=== PATIENT | male | born 1945 | race Caucasian/White ===

== ENCOUNTER 2017-02-09 08:56 | Day surgery (SDC) | payer MEDICARE, OTHER ==
[~2017-02-09] VITALS: Ht 188 cm; Wt 131.5 kg
[~2017-02-09 08:56] MED LIST: ASPI81TA16 PO; ATOR20TA35 PO; BENA20TA72 PO; FISH1CAP15 PO; GLUC100016 PO; INSU100I18 SUBQ; INSU100V4 SQ; METF1000 PO; METO50TA PO; MULT-885 PO; Sodium Chloride LOK Flush 10 mL Syringe IV PRN; TADA20TA PO; fentaNYL-PF 50 mCg/mL 2 mL Inj IVPUSH PRN
[2017-02-09] MEDS ORDERED: GLIP10TA10 PO (09:52)
[2017-02-09 10:00] VITALS: BP 128/80; PULSE 69; RESP 14; O2SAT 95
[2017-02-09] MEDS: 0.9% Sodium Chloride 1,000 ML IV SCH ×2 (10:22→11:40)
[2017-02-09 12:12] VITALS: BP 122/77; PULSE 66; RESP 14; O2SAT 96
[2017-02-09 12:24] VITALS: BP 122/71; PULSE 75; RESP 14; O2SAT 95
[2017-02-09 12:32] VITALS: BP 125/70; PULSE 65; RESP 14; O2SAT 99
--- NOTE | 2017-02-09 14:41 | ENDO ---
[address] [address] ENDOSCOPY PROCEDURE PATIENT: MARCELLE PERRY : 1945 MR#: [id number] ADMIT: 02/09/2017 JOB ID: [id number] PRIMARY PROVIDER: LALIT Oseguera PROCEDURE: Colonoscopy with hot snare polypectomy, cold snare polypectomy, Sara ink tattoo placement, and APC ablation. INDICATIONS: A 71-year-old male with a personal history of colon polyps returning for surveillance. EQUIPMENT: [employer]. SEDATION: Versed 6 mg and 100 mcg fentanyl. COMPLICATIONS: None identified. BOWEL PREPARATION: Fair, adequate exam. PROCEDURE INFORMATION: After the risks and benefits were explained, written and verbal informed consent was obtained. The patient was brought into the endoscopy suite and placed into the left lateral decubitus position. Sedation was achieved as above and a digital rectal examination accomplished. No significant pathology appreciated, apart from some mild internal hemorrhoids. The scope was introduced into the rectum and advanced under direct visualization to the cecum as identified by the appendiceal orifice and ileocecal valve. The scope was slowly withdrawn to carefully examine the mucosa for any defects or lesions. Multiple direct views were made through the dentate line for exclusion of pathology. The colon was decompressed and the scope removed the patient, who tolerated the procedure well. FINDINGS: There were four small and medium-sized polyps removed with snare, two by way of hot snare and two by way of cold snare. These came from throughout the colon. There was a larger sessile polyp spread out over a couple of folds, quite subtle in appearance, but perhaps somewhere in the neighborhood of about 2 x 2 cm. Based on its presence on a fold, on a corner it was quite challenging to excise. We utilized three different snares; a standard polypectomy snare, a 20 mm stiff snare, and a Jumbo snare. With all of our efforts there was still some residual polyp that could not be gathered up in the snare successfully. We ablated what appeared to be any residual adenomatous mucosa with APC using right colon settings. An approximately 1 mL Sara ink tattoo was placed immediately adjacent the polypectomy site and we took multiple photographs. This polyp was in the transverse colon at approximately 95 cm from the anal verge. This was an extremely challenging procedure based on the difficulty of the polyp at 95 cm. Scope time was 65 minutes. A 22 modifier was therefore requested for this procedure. FINDINGS: 1. Colon polyp. 2. Challenging large sessile transverse polyp. 3. Hemorrhoids. RECOMMENDATIONS: 1. Await histopathology. 2. Repeat surveillance colonoscopy in approximately six months' time.
--- NOTE | 2017-02-10 15:09 | PATH ---
SURGICAL PATHOLOGY Attending Physician:Austyn Long CASE STATUS: Signed Out PATIENT NAME: MARCELLE PERRY JR PID: [id number] : 1945 DATE COLLECTED:02/09/2017 20:11 SPECIMEN: 1: Colon, Biopsy 2: Colon, Biopsy CLINICAL HISTORY: 1). COLON POLYPS 2). TRANSVERSE POLYP FINAL DIAGNOSIS: 1.COLON, POLYPS, BIOPSIES: MULTIPLE FRAGMENTS OF TUBULAR ADENOMA. 2.TRANSVERSE COLON, POLYP, BIOPSY: TUBULAR ADENOMA. ICD10 CODE D12.3 D12.6 GROSS DESCRIPTION: The specimen is received in two formalin filled containers labeled with the patient's name. 1). The specimen is sublabeled "colon polyps" and consists of 3 portions of tissue which aggregate to 0.4 x 0.4 x 0.3 CM. The specimen is entirely submitted in cassette 1A. 2). The specimen is sublabeled "transverse polyp" and consists of multiple portions of tissue which aggregate to 1.2 x 1.2 x 0.4 CM. The specimen is entirely submitted in cassette 2A. 02/09/2017 [facility] MICRO DESCRIPTION: See diagnosis. ICD-9 CODES: CPT CODES: 1: 42570 2: 71472 Electronically Signed Out Alesha Ardon MD [facility] Pathology [facility] [address], [place] [address] Technical component performed at [facility], [facility] [address], [place], [address]
== END 2017-02-09 23:59 | disposition home or self-care (01) ==
LOC: END 08:56
PROVIDERS: ATTEND Internal Medicine Gastroenterology
DX: Z12.11 Encounter for screening for malignant neoplasm of colon (principal); Z86.010 Personal history of colon polyps; D12.3 Benign neoplasm of transverse colon; D12.6 Benign neoplasm of colon, unspecified; K64.9 Unspecified hemorrhoids; I10 Essential (primary) hypertension; I25.10 Atherosclerotic heart disease of native coronary artery without angina pectoris; E11.9 Type 2 diabetes mellitus without complications; I73.9 Peripheral vascular disease, unspecified; E78.5 Hyperlipidemia, unspecified; Z79.84 Long term (current) use of oral hypoglycemic drugs
CPT/HCPCS: 45381; 45385; 88305; 99153; G0500; J7030

== ENCOUNTER → 2017-06-15 | Day surgery (SDC) | payer MEDICARE, OTHER ==
[~2017-06-15] VITALS: Ht 182.9 cm; Wt 111.1 kg
[~2017-06-15] MED LIST changes: +0.9% Sodium Chloride 1,000 ML IV SCH; +ASPI-973 PO; -ASPI81TA16 PO; -ATOR20TA35 PO; +BENA20TA PO; -BENA20TA72 PO; -FISH1CAP15 PO; +FLUT15.88 NS; +GLIP10TA10 PO; -INSU100V4 SQ; +LIP40 PO; +METF-496 PO; -METF1000 PO; +METO25TA6 PO; -METO50TA PO; +SERT20OR6 PO
[2017-06-15 13:02] VITALS: BP 121/66; PULSE 63; RESP 14; O2SAT 97
[2017-06-15 14:57] VITALS: BP 137/70; PULSE 66; RESP 14; O2SAT 99
[2017-06-15 15:12] VITALS: BP 137/70; PULSE 60; RESP 14; O2SAT 99
--- NOTE | 2017-06-15 16:09 | ENDO ---
[address] [address] ENDOSCOPY PROCEDURE PATIENT: MARCELLE PERRY : 1945 MR#: [id number] ADMIT: 06/15/2017 JOB ID: [id number] PRIMARY PROVIDER: LALIT Crenshaw PROCEDURE: Colonoscopy with hot snare polypectomy, hot forceps polypectomy, cold forceps polypectomy, cold snare polypectomy. INDICATION: A 72-year-old male with a personal history of colon polyps. At last exam he had a difficult to resect polyp judged to be about 95 cm from the anal verge. He returns for early surveillance. EQUIPMENT: PCF H 180 AL. SEDATION: Versed and fentanyl titrated to effect. BOWEL PREPARATION: Fair. PROCEDURE INFORMATION: After the risks and benefits were explained, written and verbal informed consent was obtained. The patient was brought into the endoscopy suite and placed into the left lateral decubitus position. Sedation was achieved as above. Digital rectal examination was accomplished. Mild internal hemorrhoids noted. No other significant pathology was appreciated. The scope was introduced into the rectum and advanced under direct visualization to the level of the cecum, as identified by the appendiceal orifice and ileocecal valve. The scope was slowly withdrawn to carefully examine the mucosa for any defects or lesions. Retroflexed views were avoided in the rectum. Multiple direct views were made through the dentate line for exclusion of pathology. The colon was decompressed and the scope removed from the patient, who tolerated the procedure well. FINDINGS: Associated with the ileocecal valve there was an obvious polyp that would have clearly been covered by stool debris six months ago. This was sessile and attached to the ileocecal valve, spreading into the cecum and ascending colon. This was removed by way of a combination of a Jumbo hot snare, a regular hot snare, and hot forceps polypectomy. There was a diminutive 3-4 mm polyp in the ascending colon wall adjacent to this location that was removed with a cold snare. The previously placed tattoo was easily seen in the transverse colon. Associated with this tattoo was obvious residual polyp, perhaps somewhere in the neighborhood of about 12-13 mm in greatest dimension. This was removed by way of a combination of Jumbo polypectomy snare. There was a tiny remnant of adenoma that seemed to remain following this resection and it was successfully removed with cold forceps. We touched up a small amount of bleeding that ensued after the cold polypectomy with the hot forceps. There were several other very diminutive polyps that were left in situ today. Procedure time was already prolonged secondary to the difficulty at both polyp sites. ENDOSCOPIC DIAGNOSES: Multiple colon polyps. RECOMMENDATIONS: 1. Await histopathology. 2. Repeat colonoscopy in approximately six months' time to reevaluate both large polypectomy locations and to resect any residual smaller polyps left in behind here today. I would recommend a 1 hour slot for the procedure.
--- NOTE | 2017-06-17 17:46 | PATH ---
SURGICAL PATHOLOGY Attending Physician:Austyn Long CASE STATUS: Signed Out PATIENT NAME: MARCELLE PERRY JR PID: [id number] : 1945 DATE COLLECTED:06/15/2017 00:00 SPECIMEN: 1: Colon, Polyp 2: Colon, Polyp CLINICAL HISTORY: PHX OF POLYPS 1). ILEOCECAL VALVE POLYPS X2 2). TRANSVERSE COLON POLYPS FINAL DIAGNOSIS: 1. 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 Negative for high-grade dysplasia and malignancy. 2. 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 Negative for high-grade dysplasia and malignancy. ICD10: D12.6 NOTE: As part of routine water quality tester, the case was also reviewed by Dr. Ardon, who agrees with the above interpretation. GROSS DESCRIPTION: The specimen is received in two formalin filled containers labeled with the patient's name. 1). The specimen is labeled "ICV polyps" and consists of multiple portions of tissue which aggregate to 0.7 x 0.7 x 0.4 CM. The specimen is entirely submitted in cassette 1A. 2). The specimen is labeled "transverse colon polyp" and consists of 3 portions of tissue which aggregate to 0.6 x 0.5 x 0.4 CM. The largest piece is bisected, all fragments are entirely submitted in cassette 2A. 06/16/2017DC ICD-9 CODES: CPT CODES: 1: 20235 2: 88053 Electronically Signed Out Schuyler Rivera MD [facility] Pathology [facility] [address], [place] [address] Technical component performed at [facility], [facility] [address], [place], [address]
== END | disposition home or self-care (01) ==
LOC: END 00:51
PROVIDERS: ATTEND Internal Medicine Gastroenterology
DX: Z12.11 Encounter for screening for malignant neoplasm of colon (principal); D12.0 Benign neoplasm of cecum; D12.3 Benign neoplasm of transverse colon; K64.8 Other hemorrhoids; E11.9 Type 2 diabetes mellitus without complications; F32.9 Major depressive disorder, single episode, unspecified; I25.10 Atherosclerotic heart disease of native coronary artery without angina pectoris; I73.9 Peripheral vascular disease, unspecified; I10 Essential (primary) hypertension; E78.5 Hyperlipidemia, unspecified; Z79.82 Long term (current) use of aspirin; Z79.84 Long term (current) use of oral hypoglycemic drugs; Z79.4 Long term (current) use of insulin
CPT/HCPCS: 45385; 88305; 99153; G0500; J2250; J3010; J7030

== ENCOUNTER 2017-06-20 01:52 | Inpatient (IN) | payer MEDICARE, OTHER ==
[~2017-06-20] VITALS: Ht 182.9 cm; Wt 112.7 kg
[2017-06-20] VITALS (21 sets, daily range): BP systolic 82–136; BP diastolic 49–79; PULSE 74–101; RESP 16–20; O2SAT 96–100
[~2017-06-20 01:52] MED LIST changes: -0.9% Sodium Chloride 1,000 ML IV SCH; -GLUC100016 PO; -Sodium Chloride LOK Flush 10 mL Syringe IV PRN; -fentaNYL-PF 50 mCg/mL 2 mL Inj IVPUSH PRN
[2017-06-20] MEDS ORDERED: 0.9% Sodium Chloride 1,000 ML IV ONE (01:58)
--- NOTE | 2017-06-20 01:58 | ED.REPORT ---
HPI-GI Bleed Date of Service Jun 20, 2017 ED Provider: Dr. Millard 72 y/o male with a hx of DM, CAD, and Tubular adenoma with a colonoscopy last week presents to the ED via EMS complaining of bloody diarrhea, onset 4 hours ago. Associated sx include lightheadedness, malaise and diaphoresis. The pt had been experiencing diarrhea without blood since yesterday morning. He took three 325mg Aspirin today for malaise, after which he had bloody diarrhea with clots. He denies nausea, vomiting and abdominal pain. He also has orthostatic hypotension with his BP in 70s. His BP in the ED is normal while in supine position. Nursing Notes Stated Complaint: RECTAL BLEEDING Nursing Notes Reviewed: Yes Allergies: Coded Allergies: No Known Allergies (Verified Allergy, Unknown, 01/21/17) Scheduled Aspirin (Aspirin) 81 Mg Tablet 81 MG PO DAILY Atorvastatin (Lipitor) 40 Mg Tablet 40 MG PO DAILY Glipizide (Glipizide) 10 Mg Tablet 10 MG PO BID Insulin Lispro (HumaLOG U100 Insulin Pen) 100 Unit/1 Ml Insuln.pen 1 UNIT SUBQ TID Blood Sugar Lispro Correction <151 0 units 151-175 1 unit 176-200 2 units 201-225 3 units 226-250 4 units 251-275 5 units 276-300 6 units 301-325 7 units 326-350 8 units 351-375 9 units 376-400 10 units >400 12 units Check blood sugars before meals and at bedtime. Use correction factor only before meals. Metformin ER (Metformin ER) 1,000 Mg Tablet 1,000 MG PO DAILY Metoprolol Tartrate (Metoprolol Tartrate) 25 Mg Tablet 25 MG PO BID Mu-Vits-Min Th/Lycopene/Lutein (Centrum Silver Tablet) 1 Each Tablet 1 EACH PO DAILY Sertraline HCl (Sertraline) 20 Mg/1 Ml Oral.conc 25 MG PO DAILY Tadalafil (Cialis) 20 Mg Tablet 20 MG PO PRN Scheduled PRN Tadalafil (Cialis) 20 Mg Tablet 20 MG PO PRN PRN PRN na As directed by physician. Miscellaneous Medications Benazepril (Benazepril) 20 Mg Tablet 20 MG PO Fluticasone Propionate (Fluticasone Propionate) 50 Mcg/Actuation [place].susp 15.8 ML NS General Time Seen by Provider: 02:11 Chief Complaint Chief Complaint: Stool bright red blood Hx Obtained From: Patient Arrived By: Ambulance Onset Occurred: 1 - 4 hours ago Symptom Duration: Since onset Severity: Current: No pain currently Severity: Maximum: No pain Recent Healthcare: No recent doctor visit Similar Sx Previous: No Past Medical History Past Medical History Reports: Diabetes mellitus Past Surgical History Reports: Cholecystectomy Smoking History Never Smoker Ambulatory Status Independent Review of Systems Reports: orthostatic hypotension Constitutional: Reports: Malaise GI: Reports: Diarrhea, Hematochezia, Denies: Abdominal pain, Nausea, Vomiting Skin: Reports Diaphoresis Complete sys rev & neg: except as marked. Physical Exam Initial Vital Signs Vital Signs (First) Date Time Temp Pulse Resp B/P Pulse Ox O2 Delivery O2 Flow Rate FiO2 06/20/17 02:05 36.8 74 18 130/65 99 Room Air Initial VS: Reviewed Head / Eyes: Atraumatic, Normocephalic Neck: Supple, Non-tender, Full range of motion Extremities: Vascular intact, Neuro intact, No swelling, No tenderness Skin: Warm, Dry, No cyanosis Neurologic: Alert, Oriented, Nonfocal General/Constitutional: Awake, Alert, Cooperative Appearance / Presentation: Positive: Obese Respiratory / Chest: Atraumatic, Breath sounds NL, Breath sounds = bilat, No respiratory distress, No rales, No rhonchi, No wheezing Cardiovascular: Heart rate NL, Regular rhythm, Heart sounds NL, No gallop, No murmurs, No rubs Abdomen: Atraumatic, Soft, Non-tender, No guarding, No rebound, BS normoactive Interpretation & Diagnostics Lab Results Interpretation Result Diagram: 06/20/17 0328 06/20/17 0228 Test 06/20/17 02:28 06/20/17 03:28 06/20/17 04:40 White Blood Count 14.4th/mm3 (3.8-10.1) Red Blood Count 3.34mil/mm3 (4.40-5.80) Mean Corpuscular Volume 95.2fL (81-100) Mean Corpuscular Hemoglobin 30.8pg (27.0-35.0) Mean Corpuscular Hemoglobin Concent 32.4% (32.0-37.0) Red Cell Distribution Width 14.2% (12.3-15.4) Platelet Count 282bil/L (150-400) Neutrophils (%) (Auto) 75.4% (40-74) Lymphocytes (%) (Auto) 15.8% (14-46) Monocytes (%) (Auto) 5.7% (4-12) Eosinophils (%) (Auto) 2.2% (0-5) Basophils (%) (Auto) 0.4% (0-3) Prothrombin Time 11.5sec (8.1-12.5) Prothromb Time International Ratio 1.07ratio Sodium Level 142mEq/L (134-144) Potassium Level 4.4mEq/L (3.5-5.2) Chloride Level 107mEq/L (97-108) Carbon Dioxide Level 19mmol/L (18-29) Blood Urea Nitrogen 29mg/dL (8-27) Creatinine 0.94mg/dL (0.76-1.27) Estimat Glomerular Filtration Rate 84mL/min (>59) Glucose Level 181mg/dL (60-99) Calcium Level 8.3mg/dL (8.5-10.1) Magnesium Level 1.7mg/dL (1.6-2.6) Total Bilirubin 0.3mg/dL (0.0-1.2) Aspartate Amino Transf (AST/SGOT) 18U/L (0-50) Alanine Aminotransferase (ALT/SGPT) 22U/L (0-44) Alkaline Phosphatase 100U/L (25-160) Troponin T 0.010ug/L (0.0-0.011) Total Protein 5.7g/dL (6.4-8.4) Albumin 3.3g/dL (3.4-5.0) Hold Callahan Top Tube Received (Received) Urine Color Straw (YELLOW) Urine Appearance Hazy (CLEAR,HAZY) Urine pH 5.0 (5.0-8.0) Urine Specific [place] 1.021 (1.003-1.035) Urine Protein Negativemg/dL (NEG,TRACE) Urine Glucose (UA) Negativemg/dL (NEGATIVE) Urine Ketones 15mg/dL (NEGATIVE) Urine Occult Blood Negative (NEGATIVE) Urine Nitrite Negative (NEGATIVE) Urine Bilirubin Negative (NEGATIVE) Urine Urobilinogen Normalmg/dL (NORMAL) Urine Leukocyte Esterase Negative (NEGATIVE) Urine RBC 0-2/hpf (0-2) Urine WBC 0-5/hpf (0-5) Urine Epithelial Cells Occasional/hpf (NONE-MOD) Urine Crystals None seen (NONE SEEN) Urine Bacteria Few/hpf (NONE-FEW) Urine Hyaline Casts Occasional/lpf (NONE) Urine Granular Casts None seen (NONE SEEN) Urine Waxy Casts None seen (NONE SEEN) Urine Red Blood Cell Casts None seen (NONE SEEN) Urine White Blood Cell Casts None seen (NONE SEEN) Urine Mucus None seen (None Seen) Urine Trichomonas None seen (NONE SEEN) Urine Yeast None (NONE SEEN) Urinalysis Comment None Urine Culture Reflexed Not indicated ECG Interpretation ECG Interpretation: Normal sinus rhythm. Rate 73. Incomplete left bundle branch block. Time: 02:09 Interpreted by: ED physician X-Ray Chest Interpretation Chest Xray Interpretation: Normal View: Portable, 1 view Interpretation / Wet Read by: Wet read ED physician Re-Eval/Medical Decision Med Decision/Clinical Course 72-year-old presents with significant lower GI bleeding bright red blood and clot at after colonoscopy with biopsy of a large and significant polyp. He did take aspirin, but I suspect his bleeding had already begun before he did that. He is admitted now for cleanout and potential colonoscopy and cauterization this morning. Original ram press operator Dr. Prescott will be on this morning. He is orthostatic and quite dizzy with upright posture and is obviously kept Supine. He is been fluid resuscitated and experienced a 1 g drop in his hemoglobin from 10.3-9.4 after his first liter of fluid. I expect he will require transfusion at this morning and blood is available. Transported now to the PCU with two IVs in place. Blood crossmatched in the lab. Begin Colyte cleanout Source of Hx: Old records Re-Evaluation/Progress : Time of Eval: 04:55 Re-Evaluation/Progress Note: Rechecked pt. Discussed lab results, imaging results,diagnosis and plan to admit. Pt understands and agrees with the plan for admission. All questions addressed. Consultation : Referral / Consult Name: Miguel Paul MD Consulted With: Hospitalist Call Returned at: 04:26 Fence Post Driver: Will see patient, Agrees with eval, Agrees with plan, Accepts admit Counseled Regarding: Diagnosis, Lab results, Need for admission Discharge & Departure Impression: Primary Impression: Lower gastrointestinal bleed Additional Impressions: Anemia Anemia type: unspecified type Qualified Code: D64.9 - Anemia, unspecified Acute blood loss anemia Hypotension due to blood loss Disposition: ADMITTED TO HOSPITAL Discharge Condition All VS Reviewed: Yes Condition: Improved Referrals: Marija Graves (PCP) Crit Care Except Billable Proc Time Spent: 30-74 minutes (thirty minutes) Services Performed: Patient management by me, Time spent at bedside, Reviewing test results, Reviewing imaging, Discussing patient care, Documentation in record, Other (arranging admission) Scribe Attestation Portions of this note were transcribed by Gerardo Espinoza. I,, personally performed the history, physical exam and medical decision-making;I reviewed and confirmed the accuracy of the information in the transcribed note. Signed by Zaina Morrison. 06/20/17 copies to: Marija Graves Christopher W MD Jun 20, 2017 01:58 Gerardo Espinoza Jun 20, 2017 02:34
[2017-06-20 02:35] LABS: BASOPHILS % (AUTO) 0.4 % (0-3); EOSINOPHILS % (AUTO) 2.2 % (0-5); MONOCYTES % (AUTO) 5.7 % (4-12); Mean Corpuscular Hemoglobin 30.8 pg (27.0-35.0); Mean Corpuscular Volume 95.2 fL (81-100); NEUTROPHILS % (AUTO) 75.4 % (40-74); Platelet Count 282 bil/L (150-400)
[2017-06-20 02:48] LABS: INR 1.07 ratio
[2017-06-20 03:08] LABS: TROPONIN T 0.01 ug/L (0.0-0.011)
[2017-06-20 03:14] LABS: Magnesium 1.7 mg/dL (1.6-2.6)
[2017-06-20] MEDS ORDERED: Polyethylene Glycol (PEG) 17 Gm Powder PO PRN (04:30)
[2017-06-20] MEDS ORDERED: Alum-Mag Hydrox-Simeth 30 mL Suspension PO PRN (04:30)
[2017-06-20] MEDS ORDERED: Ondansetron 2 mg/mL 2 mL Inj IVPUSH PRN (04:30)
[2017-06-20] MEDS ORDERED: Glucose 40% Oral Gel 15 Gm Tube PO PRN (04:45)
[2017-06-20 04:55] LABS: COLOR,URINE STRAW (YELLOW)
[2017-06-20 04:56] LABS: APPEARANCE,URINE HAZY (CLEAR,HAZY); OCCULT BLOOD,URINE NEGATIVE (NEGATIVE); UROBILINOGEN,URINE NORMAL (NORMAL)
--- NOTE | 2017-06-20 05:07 | PCM.HPMED ---
Subjective Date of Service Jun 20, 2017 Primary Provider: Admitting Physician: Primary Care Physician: Marija Graves Attending Physician: Admit Status: From the Emergency Department, Full Admit, [facility] Telemetry Chief Complaint: Rectal bleeding History of Present Illness: Claude Dougherty is a 72 yo Gentleman with Diabetes, Coronary artery disease, Peripheral artery disease and Tubular adenoma with recent colonoscopy presents to [facility] Emergency department via EMS complaining of bloody diarrhea, onset 4 hours ago. Patient recently had a Colonoscopy on 06/07/17. He did well after the procedure. Yesterday patient developed diarrhea without any blood but then he noted some increased bloody stools with clots late last night. Associated symptoms include lightheadedness, malaise and diaphoresis. He reported taking 3 x 325 mg of Aspirin apparently because he developed malaise prior to the bleeding. He denies nausea, vomiting and abdominal pain. Case discussed with Dr Millard. patient noted to have orthostatic hypotension with his BP in 70s. He was still dizzy when trying to get up. Fluids initiated. Dr Prescott notified by Dr Millard Review of Systems: Pertinent positives as noted in HPI. All other systems were reviewed and are negative Allergies Coded Allergies: No Known Allergies (Verified Allergy, Unknown, 01/21/17) Home Medications From [facility], not yet confirmed Claude Dougherty [id number] 1945 05/27/2017 11:00 AM 11/24 aspirin 81 mg Tab take 1 tablet (81MG) by ORAL route every day atorvastatin 40 mg tablet TAKE 1 TABLET DAILY for high cholesterol. benazepril 20 mg tablet TAKE 1 TABLET DAILY Centrum Silver Tab take 1 tablet by ORAL route every day CIALIS TABS 20MG TAKE 1 TABLET DAILY NEEDED FLUTICASONE VA NS SP 16GM RX 50MCG USE 1 SPRAY IN EACH NOSTRIL DAILY glipizide 5 mg tablet TAKE 2 TABLETS once DAILY WITH MEAL Humalog KwikPen 100 unit/mL subcutaneous inject by subcutaneous route per prescriber's instructions. Insulin dosing requires individualization. Levemir 100 unit/mL subcutaneous solution INJECT BY SUBCUTANEOUS ROUTE 40 UNITS AT BEDTIME METFORMIN HCL TABS 1000MG TAKE 1 TABLET TWICE A DAY WITH MORNING AND EVENING MEALS metoprolol tartrate 25 mg tablet take 1 tablet by oral route 2 times every day sertraline 25 mg tablet take 1 tablet by oral route every day PMH Coronary artery disease Diabetes mellitus PAD (peripheral artery disease) Hypertension Nuclear senile cataract Hyperlipidemia Left anterior fascicular block Tubular adenoma with repeated colonoscopy . Surgical History Cardiac cath Cholecystectomy Colonoscopy with polypectomy Family History Patient was adopted Social History Hx Alcohol Use: No (QUIT 30 YEARS) Hx Substance Use: No Hx Tobacco Use: No Smoking Status: Never Smoker Living Arrangement: with Family Exam Vital Signs Vital Sign - Last Date Time Temp Pulse Resp B/P Pulse Ox O2 Delivery O2 Flow Rate FiO2 06/20/17 02:05 36.8 74 18 130/65 99 Room Air Intake and Output 06/19/17 06/19/17 06/20/17 Cumulative From/Thru 15:00 23:00 07:00 06/20/17 02:05 - 06/20/17 04:28 Intake Total 1999 ml 1999 ml Output Total 300 ml 300 ml Balance 1699 ml 1699 ml Intake IV Total 1999 ml 1999 ml Output Estimated Blood Loss 300 ml 300 ml Exam General: Alert, Oriented X3, Cooperative, No acute Distress Eyes: PERRLA, Scleral Anicteric Mouth: Mouth Normal, Mucous Membranes Moist/[place] Neck: Supple, no Thyromegaly, trachea central. Chest & Lungs: Clear to auscultation & percussion, No adventitious breath sounds, no crackles, no wheeze Cardiovascular: Normal S1, Normal S2, No Murmurs/Rubs/Gallops, Regular Rate/ Rhythm, (No JVD, no peripheral edema) Pulses: Radial (present and equal), Dorsalis Pedi (present and equal) Abdomen: Soft, Non-tender, Non-distended, Normoactive bowel tones. Musculoskeletal: Unremarkable. Normal range of motion, no swollen or erythematous joints Extremities: No edema, no cyanosis, no clubbing. Skin: No rashes. Warm and dry, no erythematous areas Neurological: Grossly neurologically intact, Normal Speech, Sensation Intact Lymphatic: Lymph nodes Cervical and Axillary not palpable. Lab and Diagnostics Labs Laboratory Tests Test 06/20/17 02:28 06/20/17 03:28 White Blood Count 14.4th/mm3 (3.8-10.1) Red Blood Count 3.34mil/mm3 (4.40-5.80) Hemoglobin 10.3g/dL (13.8-17.2) 9.4g/dL (13.8-17.2) Hematocrit 31.8% (41.0-50.0) 28.8% (41.0-50.0) Mean Corpuscular Volume 95.2fL (81-100) Mean Corpuscular Hemoglobin 30.8pg (27.0-35.0) Mean Corpuscular Hemoglobin Concent 32.4% (32.0-37.0) Red Cell Distribution Width 14.2% (12.3-15.4) Platelet Count 282bil/L (150-400) Neutrophils (%) (Auto) 75.4% (40-74) Lymphocytes (%) (Auto) 15.8% (14-46) Monocytes (%) (Auto) 5.7% (4-12) Eosinophils (%) (Auto) 2.2% (0-5) Basophils (%) (Auto) 0.4% (0-3) Prothrombin Time 11.5sec (8.1-12.5) Prothromb Time International Ratio 1.07ratio Sodium Level 142mEq/L (134-144) Potassium Level 4.4mEq/L (3.5-5.2) Chloride Level 107mEq/L (97-108) Carbon Dioxide Level 19mmol/L (18-29) Blood Urea Nitrogen 29mg/dL (8-27) Creatinine 0.94mg/dL (0.76-1.27) Estimat Glomerular Filtration Rate 84mL/min (>59) Glucose Level 181mg/dL (60-99) Calcium Level 8.3mg/dL (8.5-10.1) Magnesium Level 1.7mg/dL (1.6-2.6) Total Bilirubin 0.3mg/dL (0.0-1.2) Aspartate Amino Transf (AST/SGOT) 18U/L (0-50) Alanine Aminotransferase (ALT/SGPT) 22U/L (0-44) Alkaline Phosphatase 100U/L (25-160) Troponin T 0.010ug/L (0.0-0.011) Total Protein 5.7g/dL (6.4-8.4) Albumin 3.3g/dL (3.4-5.0) Hold Callahan Top Tube Received (Received) Result Diagram: 06/20/17 0328 06/20/17 0228 Assessment & Plan Claude Dougherty is a 72 yo Gentleman with Diabetes, Coronary artery disease, Peripheral artery disease and Tubular adenoma with recent colonoscopy presents to [facility] Emergency department via EMS complaining of bloody diarrhea 1. Acute Lower GI bleeding. Present on admission Likely bleeding from site of recent polypectomy procedure. Other etiology includes Diverticular bleeding, Vascular ectasias, Colorectal Cancer, Hemorrhoids, anal fissure. Orthostatic noted which means significant volume loss - nothing by mouth - IV fluids resuscitations - holding Aspirin for now and holding anticoagulations - Dr Prescott will be notified by Dr Millard 2 Acute Blood loss anemia. Present on admission MCV normal with history of Tubular adenoma. Patient likely has a chronic cause for anemia - checking H/H every 4 hours - transfusion trigger will be Hgb < 8 due to concomitant heart disease - Type and cross packed RBC for transfusion 3 Type 2 Diabetes, Chronic - low correction Lispro algorithm - holding Metformin and Glipizide - checking A1c 4 Hypertension, Chronic - continuing Benazepril 20 mg daily and Metoprolol 25 mg bid 5 Hyperlipidemia, Chronic - continue Atorvastatin 40 mg daily - Acetaminophen as needed for mild pain/fever/headache - Bowel regimen as needed - Antiemetic as needed Patient admitted under inpatient status with expected length of stay > 2 midnights for severity of present symptoms, complexities of treatment plan and risk for adverse event . Resuscitation Status: CPR: Attempt Resuscitation Miguel Paul MD Jun 20, 2017 04:42 Levemir 100 unit/mL subcutaneous solution INJECT BY SUBCUTANEOUS ROUTE 40 UNITS AT BEDTIME sertraline 25 mg tablet take 1 tablet by oral route every day Resuscitation Status: CPR: Attempt Resuscitation Miguel Paul MD Jun 20, 2017 04:42
--- NOTE | 2017-06-20 05:40 | NUR ---
Admission Pt admitted from the ED with an active GI bleed. Second litre of fluid being administered. SP02 and pulse stable. Pt denies SOB. Dizzy at times. BR for safety until more hemodynamically stable. Pt experiencing large amounts of bloody diarrhea. Current count at 900ml. Telemetry on PT, SR 80's according to cryptologic technician.
[2017-06-20] MEDS: 0.9% Sodium Chloride 1,000 ML IV SCH ×4 (06:16→15:42)
[2017-06-20] MEDS: Insulin LISPRO 300 Unit/3 mL Inj SUBQ SCH ×4 (07:35→21:43)
[2017-06-20] MEDS ORDERED: 0.9% Sodium Chloride 250 ML IV ONE (07:45)
[2017-06-20] MEDS ORDERED: fentaNYL-PF 50 mCg/mL 2 mL Inj IVPUSH PRN (10:10)
--- NOTE | 2017-06-20 10:25 | PCM.CHPMED ---
Subjective Date of Service: Jun 20, 2017 Provider requesting consult: Edgar Mendiola DO Primary Physician: Admitting Physician: Miguel Paul MD Primary Care Physician: Marija Graves Attending Physician: Claude Martin MD Chief Complaint: Chief Complaint: Rectal Bleeding History of Present Illness: Claude Dougherty is a 72 year old man with past medical history significant for diabetes, coronary artery disease, peripheral artery disease, and tubular adenoma with recent colonoscopy and polypectomy on 06/15/17 who presents to [facility] Emergency department via EMS complaining of bloody diarrhea. Patient states that following colonoscopy on Tuesday the he had no issues until Tuesday evening. Tuesday evening he begin to feel somewhat weak in the legs. Tuesday morning he woke and began to have diarrhea with no blood at this time but progressively felt worse. Subsequently, he took aspirin and an hour later he noticed bright red blood per rectum. When this did not resolve he presented to the ED approximately 4 hours later. Overnight he has had some nausea that has improved with zofran. Bleeding continues and he is currently having two units PRBCs transfused. Hemoglobin has dropped overnight from 10.3 to 7.6 this morning. Vitals are somewhat tenuous with systolics in the 80s-90s. Review of Systems: Constitutional: Reports: Weakness, Denies: Chills, Fever, Sweats Eyes: Denies: Blurred Vision, Vision Changes Cardiovascular: Denies: Chest Pain, SOB on Exertion, SOB while laying flat Respiratory: Denies: Cough Gastrointestinal: Reports: Abdominal Pain, Blood in stool (red), Diarrhea Genitourinary: Denies: Dysuria, Hematuria Neurological: Reports: Dizziness Psychologic: Denies: Agitation, Anxiety Hematologic: Reports: Abnormal Bleeding PMH Past Medical History Coronary artery disease Diabetes mellitus PAD (peripheral artery disease) Hypertension Nuclear senile cataract Hyperlipidemia Left anterior fascicular block Tubular adenoma with repeated colonoscopy Bedside Blood Glucose: 197 Surgical History Cardiac cath without need for stent placement Cholecystectomy Colonoscopy with polypectomy Home Medications aspirin 81 mg Tab take 1 tablet (81MG) by ORAL route every day atorvastatin 40 mg tablet TAKE 1 TABLET DAILY for high cholesterol. benazepril 20 mg tablet TAKE 1 TABLET DAILY Centrum Silver Tab take 1 tablet by ORAL route every day CIALIS TABS 20MG TAKE 1 TABLET DAILY NEEDED FLUTICASONE AL NS SP 16GM RX 50MCG USE 1 SPRAY IN EACH NOSTRIL DAILY glipizide 5 mg tablet TAKE 2 TABLETS once DAILY WITH MEAL Humalog KwikPen 100 unit/mL subcutaneous inject by subcutaneous route per prescriber's instructions. Insulin dosing requires individualization. Levemir 100 unit/mL subcutaneous solution INJECT BY SUBCUTANEOUS ROUTE 40 UNITS AT BEDTIME METFORMIN HCL TABS 1000MG TAKE 1 TABLET TWICE A DAY WITH MORNING AND EVENING MEALS metoprolol tartrate 25 mg tablet take 1 tablet by oral route 2 times every day sertraline 25 mg tablet take 1 tablet by oral route every day Allergies: Coded Allergies: No Known Allergies (Verified Allergy, Unknown, 01/21/17) Family History Family History Patient adopted and therefore is not aware of his family history. Social History Hx Alcohol Use: Yes (occassional)Hx Substance Use: NoHx Tobacco Use: No Smoking Status: Never Smoker Living Arrangement: with Family Exam Vital Signs Vital Sign - Last Date Time Temp Pulse Resp B/P Pulse Ox O2 Delivery O2 Flow Rate FiO2 06/20/17 09:59 89 06/20/17 09:06 91/58 06/20/17 09:05 36.4 18 06/20/17 06:07 97 Room Air Intake and Output 06/19/17 06/19/17 06/20/17 Cumulative From/Thru 15:00 23:00 07:00 06/20/17 02:05 - 06/20/17 06:14 Intake Total 1999 ml 1999 ml Output Total 1200 ml 1200 ml Balance 799 ml 799 ml Intake Oral 0 ml 0 ml IV Total 1999 ml 1999 ml Output Estimated Blood Loss 1200 ml 1200 ml General: Alert, Oriented X3, No Acute Distress Head: Normal Eyes: Other (Pale conjunctiva) Mouth: Mucous Membranes Dry Neck: Supple Chest & Lungs: Clear to auscultation & percussion Cardiovascular: Regular Rate/Rhythm Abdomen: Tender (mild LLQ tenderness to palpation), Normoactive bowel tones, Obese Musculoskeletal: Unremarkable Neurological: Grossly Neurologically Intact, Cranial Nerves 2-12 Intact Lab and Diagnostics Result Diagram: 06/20/17 0713 06/20/17 0228 Assessment & Plan Assessment Claude Dougherty is a 72 year old man with past medical history significant for diabetes, coronary artery disease, peripheral artery disease, and tubular adenoma with recent colonoscopy and polypectomy on 06/15/17 who presents to [facility] Emergency department via EMS complaining of bloody diarrhea. Patient currently with tenuous pressures and continued bleeding. Recommendations: - Complete 2 units PRBC transfusions. Two additional units placed on hold. - Monitor H/H closely. - Colonoscopy immediately to determine source of bleed. - Further recommendations pending colonoscopy findings. - Hold aspirin and other anticoagulants at this time. Thank you for involving us in the patient's care. We will continue to follow. Problems: VTE Mechanical Devices: Intermittant Pneumatic CD Resuscitation Status: CPR: Attempt Resuscitation Attending Statement Patient seen and examined. Agree with assessment and plan as described by Dr Gamez. Post-polypectomy bleeding. MARTINA GAMEZ DO Jun 20, 2017 10:25 Augustine Prescott MD Jun 20, 2017 21:20
--- NOTE | 2017-06-20 10:47 | NUR ---
Off Floor Pt taken off weaver to endoscopy. 2nd unit blood hung prior to departure. Pt c/o urinary retention. Unsuccessfully attempted to void twice this am. Hines inserted prior to departure, verbal order from hospitalist. Immediate return 600mL clear yellow urine. Addendum: 06/20/17 at 1509 by LUIZ HACKETT RN Pt returned to room shortly before 1230.
--- NOTE | 2017-06-20 11:11 | DRSVH ---
PROCEDURE: X-RAY CHEST ONE VIEW, PORTABLE ([id number]) INDICATIONS: lgi bleed, hypotension TECHNIQUE: One view of the chest was acquired. COMPARISON: [facility], , CHEST 2VW, 02/26/2014, 11:34. FINDINGS: Surgical changes and devices: None. Lungs and pleura: No pleural effusions or pneumothorax. Lungs are clear. Mediastinum: Mediastinal contours appear normal. Heart size is normal. Bones and chest wall: No suspicious bony lesions. Overlying soft tissues appear unremarkable. IMPRESSION: No acute cardiopulmonary disease. Dictated by: Quirino Loza [facility] Interpreted: Shasha Webb MD on 06/20/2017 at 9:23 Approved by: Shasha Webb M.D. on 06/20/2017 at 11:09
--- NOTE | 2017-06-20 16:19 | NUR ---
Social Work Note: Initial Assessment Data& Assessment: EMR reviewed. Pt was discussed in multidisciplinary rounds, per MD pt is not medically ready for discharge a this time. Pt went to endoscopy today. MD does not identify any concerns with pt capacity for self care. SW met with pt and pt at bedside to discuss discharge planning, SW role explained and discharge planning checklist provided. Claude Dougherty Jr is a 72 year old male admitted on 06/20/2017 for lower GI bleed. Pt has Medicare and [employer] insurance coverage. Pt is not service connected with the [facility] and does not have LTC insurance. Pt lives in [place] alone, pt is away from the home at this time. Pt remains independent with all ADL's and drives. Pt does not use any DME but does own walking sticks. Pt does not have HH or SNF hx. SW to provide copies of DPOA/AD paperwork to pt and pt . Pt and pt deny any other needs at this time. SW to continue to follow. Plan: Anticipated discharge home via POV when medically ready. SW to provide copies of DPOA/AD paperwork to pt and pt . Pt and pt deny any other needs at this time. SW to continue to follow. SAMEERA Shoemaker Addendum: 06/20/17 at 1624 by ALMAZ FAUSTIN Amended: Links added.
--- NOTE | 2017-06-20 17:52 | NUR ---
Improvement This am pt was light-headed and dizzy, even while lying in bed. Seemed mentally sluggish, falling asleep easily. Pt returned from endoscopy awake and alert without any residual dizziness. Remained alert rest of shift, visiting with . No further BM this shift. Addendum: 06/20/17 at 1801 by LUIZ HACKETT RN Sachi winters per nursing protocol.
--- NOTE | 2017-06-20 19:31 | ENDO ---
[address] [address] ENDOSCOPY PROCEDURE PATIENT: MARCELLE PERRY : 1945 MR#: [id number] ADMIT: 06/20/2017 JOB ID: [id number] PRIMARY PROVIDER: LALIT Oseguera. PROCEDURE: Colonoscopy with epinephrine injection and Gold Probe application for hemostasis. INDICATIONS: A 72-year-old male with polypectomies at colonoscopy approximately five days ago. He was doing fine until yesterday evening when he developed significant bright red blood per rectum and has had about eight episodes of hematochezia overnight. Blood count has dropped into the 7 range. It was postural and is receiving blood transfusion. Last hematochezia about an hour ago. EQUIPMENT: [id number]. SEDATION: None. BOWEL PREPARATION: None, but we had adequate visualization with heavy irrigation. PROCEDURE INFORMATION: After the risks and benefits were explained, written and verbal informed consent was obtained, the patient was brought into the endoscopy suite and placed into the left lateral decubitus position. Digital rectal examination was accomplished. No significant pathology appreciated. The scope was introduced into the rectum and advanced to the cecum as identified by the appendiceal orifice and ileocecal valve. Careful inspection of the polypectomy site at the ICD location was accomplished. There was definitely a nonbleeding visible vessel present within the bed of the polypectomy defect, which was otherwise bland-based. There was no evidence of any active bleeding. Intervention was pursued as described below. The scope was then slowly withdrawn to carefully examine the more distal mucosa for any defects or lesions. The 2nd site was identified. The scope was then slowly withdrawn to carefully examine the rest of the mucosa for any other pathology. The colon was decompressed. The scope removed from the patient who tolerated the procedure well. FINDINGS: The site adjacent to the ileocecal valve was almost certainly the culprit bleeder. We injected in three locations around the polypectomy site with a total of 1.5 cc of dilute 1:10,000 epinephrine. We had an appropriate blanching effect. I then unsheathed a 360 resolution clip but did not feel that it was sufficiently wide enough to grab the normal mucosa on either side of the defect to allow and provide for appropriate approximation. One side of the clip would have been buried into the ulcer defect, which would be far from optimal. We elected to therefore abandon clip and utilized a 7-Chinese Gold Probe to apply cautery to the nonbleeding visible vessel. No hemorrhagic complications were created. Intervention appeared appropriate visually. The site more distally in the colon, in the transverse colon, was identified and, for the most part, was a bland-based ulcer defect with no stigmata of recent bleeding. There were numerous large clots that remained in the colon that we left in situ. No other significant pathology appreciated throughout. ENDOSCOPIC DIAGNOSES: 1. Postpolypectomy bleeding. 2. Nonbleeding visible vessel at the ileocecal valve site, status post epinephrine injection and Gold Probe application for hemostasis. RECOMMENDATIONS: 1. Continue close hemodynamic monitoring and serial CBC. 2. Clear liquid diet for now, nothing red. 3. If the patient remains clinically stable overnight without signs of rebleeding, then I think he should be allowed discharge home. 4. I would recommend he hold off on aspirin for another 5-7 days.
--- NOTE | 2017-06-20 19:41 | PCM.PNMED ---
Subjective Date of Service Jun 20, 2017 Subjective Assessment: Upon talking to the patient this morning he seemed anxious and alert. He complains of continuous high output bloody diarrhea. Events Overnight: Patient still complaining of high output bloody diarrhea, GI consulted who is able to perform a scope this morning. No major sources of bleeding identified. ROS: Denies fever/chills, nausea/vomiting, headache, weakness, abdominal pain, chest pain, shortness of breath, increased swelling in hands or feet. Exam Vital Signs Vital Sign - Last Date Time Temp Pulse Resp B/P Pulse Ox O2 Delivery O2 Flow Rate FiO2 06/20/17 17:18 36.6 88 16 102/65 96 Room Air Intake and Output 06/19/17 06/19/17 06/20/17 Cumulative From/Thru 15:00 23:00 07:00 06/20/17 02:05 - 06/20/17 06:14 Intake Total 1999 ml 1999 ml Output Total 1200 ml 1200 ml Balance 799 ml 799 ml Intake Oral 0 ml 0 ml IV Total 1999 ml 1999 ml Estimated Blood Loss 1200 ml 1200 ml Exam General: Mild distress, well-developed, well-nourished HEENT: Normocephalic, atraumatic. External ears without defect. Pupils equal, round, and reactive to light and accommodation. Anicteric sclerae, pale moist conjunctivae. Cardiovascular: Regular rate and rhythm with no murmurs, rubs, or gallops appreciated Pulmonary: Clear to auscultation bilaterally with no crackles, wheezes, or rhonchi. Normal respiratory effort with no use of accessory muscles. Abdomen: Bowel tones present. Soft, left lower quadrant tenderness, nondistended. Extremities: No clubbing, cyanosis, edema Skin: Normal temperature, turgor, and texture; no rash, ulcers, or subcutaneous nodules appreciated. Neurological: Cranial nerves grossly intact. Reflexes, coordination, and sensory function within normal limits. Normal muscle strength, tone, and bulk. Psychiatric: Normal mood and affect. Alert and oriented to person, place, and time IVs and Medications IV Fluids 2.25 L NS delivered with IV medications. Medications Reviewed: Medications were reviewed in detail Lab and Diagnostics Result Diagram: 06/20/17 1744 06/20/17 0228 X-Rays, CTs and MRIs X-RAY CHEST ONE VIEW, PORTABLE IMPRESSION: No acute cardiopulmonary disease. Dictated by: Quirino REYA Interpreted: Shasha Webb MD on 06/20/2017 at 9:23 Approved by: Shasha Webb M.D. on 06/20/2017 at 11:09 Assessment & Plan Claude Dougherty is a 72 yo Gentleman with Diabetes, Coronary artery disease, Peripheral artery disease and Tubular adenoma with recent colonoscopy presents to [facility] Emergency department via EMS complaining of bloody diarrhea Acute Lower GI bleeding. Present on admission, active Likely bleeding from site of recent polypectomy procedure. Other etiology includes Diverticular bleeding, Vascular ectasias, Colorectal Cancer, Hemorrhoids, anal fissure. Orthostatic noted which means significant volume loss - Clear liquid diet - IV fluids resuscitations - Continue holding Aspirin and anticoagulants - Dr Prescott consulted this morning, scope done. Bleeding polypectomy found and bleeding stopped. - Continue to monitor. Normocytic anemia secondary to Acute Blood loss. Present on admission, active MCV normal with history of Tubular adenoma. Patient likely has a chronic cause for anemia - Continue checking H/H every 4 hours - Transfusion trigger will be Hgb < 8 due to concomitant heart disease - Type and cross packed RBC for transfusion Type 2 Diabetes, Chronic - low correction Lispro algorithm - holding Metformin and Glipizide - Hemoglobin A1c pending Hypertension, Chronic - continuing Benazepril 20 mg daily and Metoprolol 25 mg bid Hyperlipidemia, Chronic - continue Atorvastatin 40 mg daily - Acetaminophen as needed for mild pain/fever/headache - Bowel regimen as needed - Antiemetic as needed Disposition: Monitor patient's cardiopulmonary status. If stable he may discharge tomorrow with close GI follow-up. . Pain Evaluation: Adequate Pain Control VTE Mechanical Devices: Intermittant Pneumatic CD Resuscitation Status: CPR: Attempt Resuscitation Attending Statement The patient was seen and examined together with Dr. Mendiola on 06/20/2017 and I agree with the history, exam and plan as outlined in the note above. . Edgar Mendiola DO Jun 20, 2017 19:41 Claude Martin MD Jun 23, 2017 20:10
[2017-06-20] MEDS ORDERED: Lidocaine 2% 5 mL Topical Jelly MUC_MEMBRM ONE (20:05)
[2017-06-21] VITALS (9 sets, daily range): BP systolic 122–152; BP diastolic 65–91; PULSE 81–101; RESP 16–20; O2SAT 96–98
[2017-06-21] MEDS: 0.9% Sodium Chloride 1,000 ML IV SCH ×2 (02:05→10:27)
--- NOTE | 2017-06-21 03:51 | NUR ---
Hemodynamics Dr Salinas notified, H/H 7.7/23.4, pt weight up 2 kgs BP 146/74 TEL SR HR 81, pt using own c-pap 96%, able to stand and sit without s/s, New orders received to give 2 units of PRBCs slowly.
--- NOTE | 2017-06-21 05:49 | NUR ---
voiding small amounts at time dark reinaldo, bladder scaned after voiding 100mls zero mls shown on the bladder scanner
[2017-06-21] MEDS: Insulin LISPRO 300 Unit/3 mL Inj SUBQ SCH ×2 (07:58→11:58)
[2017-06-21 09:12] LABS: BASOPHILS % (AUTO) 0.3 % (0-3); EOSINOPHILS % (AUTO) 1.8 % (0-5); MONOCYTES % (AUTO) 6.2 % (4-12); Mean Corpuscular Hemoglobin 29.7 pg (27.0-35.0); Mean Corpuscular Volume 90.7 fL (81-100); NEUTROPHILS % (AUTO) 74.1 % (40-74); Platelet Count 228 bil/L (150-400)
[2017-06-21 09:44] LABS: Magnesium 1.6 mg/dL (1.6-2.6)
[2017-06-21] MEDS ORDERED: Furosemide 10 mg/mL 2 mL Inj IVPUSH ONE (09:45)
[2017-06-21] MEDS ORDERED: 0.9% Sodium Chloride 250 ML IV ONE (10:55)
--- NOTE | 2017-06-21 11:33 | PCM.PNSURG ---
Subjective Date of Service: Jun 21, 2017 Date of Service: Jun 21, 2017 Visit Information: Reason for Visit Lower Gi Bleed, Anemia, Orthostatic Hypotension Surgery/Surgery Date Post-Op Day # Date of Admission: Jun 20, 2017 at 04:43 Hospital Day # Subjective: Gastroenterology Progress Note Overnight patient's H/H dropped and he received 1 unit PRBCs. Subsequent hemoglobin was 8.3. Patient is currently receiving and additional unit. After this unit he will have had a total of 4 units PRBCs during this hospitalization. Patient states he feels well and much improved from yesterday. No nausea, vomiting, melana, hematochezia, hematemisis, shortness of breath, or chest pain. He has not had a bowel movement since colonoscopy yesterday. Postop General: No Complaints Objective Vital Sign- Last 8 Hours Date Time Temp Pulse Resp B/P Pulse Ox O2 Delivery O2 Flow Rate FiO2 06/21/17 10:06 82 06/21/17 07:54 36.7 83 18 138/83 98 OxyMask 06/21/17 06:24 36.6 93 18 138/91 06/21/17 06:00 36.6 95 20 152/89 06/21/17 05:55 37.0 97 20 151/65 Intake and Output- Last 8 Hour 06/21/17 Cumulative From/Thru 07:00 06/20/17 02:05 - 06/21/17 05:18 Intake Total 1560 ml 6590 ml Output Total 325 ml 2980 ml Balance 1235 ml 3610 ml Intake Oral 760 ml 1537 ml IV Total 800 ml 4453 ml Packed Cells 600 ml Output Urine Total 325 ml 700 ml Estimated Blood Loss 2280 ml # Bowel Movements 0 2 General: Alert, Oriented X3, Cooperative, No Acute Distress Neck: Supple Lungs: Clear to Auscultation, Normal Air Movement Heart: Exam Unremarkable Abdomen: Benign, Soft, Non-tender Extremities: Distal Pulses Palpable, Warm Neuro: Cranial Nerves 2-12 nl, Grossly Neurologically Intact Catheters: None Result Diagram: 06/21/17 0900 06/21/17 0900 Assessment & Plan Impression Claude Dougherty is a 72 year old man with past medical history significant for diabetes, coronary artery disease, peripheral artery disease, and tubular adenoma with recent colonoscopy and polypectomy on 06/15/17 who presents to [facility] Emergency department via EMS complaining of bloody diarrhea. Patient upon presentation hemodynamically unstable but has stabilized since transfusion and colonoscopy. Colonoscopy confirmed source as postpolypectomy bleeding. Site was located at the ileocecal valve site and Dr. Prescott injected with epinephrine and applied gold probe to achieve hemostasis. Patient's H/H now appropriately up after 4 th unit of pRBC. No melena or hematochezia reported. Recommendations: - Patient is currently receiving 4th unit of PRBCs. - If H/H remains table without any further evidence of BRBPR, then could be d/c' d home at discretion of primary service. - Continue close hemodynamic monitoring and serial CBC. - Advance diet as tolerated. - Hold aspirin and other anticoagulants at this time. Thank you for involving us in the patient's care. We will continue to follow. Problems: Resuscitation Status: CPR: Attempt Resuscitation Attending Statement: Patient seen and examined. Agree with assessment and plan as described by Dr Gamez. MARTINA GAMEZ DO Jun 21, 2017 11:33 Augustine Prescott MD Jun 21, 2017 15:49
--- NOTE | 2017-06-21 15:48 | PCM.DIMED ---
Edgar Mendiola DO 06/21/17 1548: Discharge Instructions Date of Service Jun 21, 2017 Dates of Hospitalization Jun 20, 2017 at 04:43 Discharge Diagnosis Discharge Diagnosis Acute Lower GI bleeding. Present on admission, active Normocytic anemia secondary to Acute Blood loss. Present on admission, active Type 2 Diabetes, Chronic Hypertension, Chronic Hyperlipidemia, Chronic Medication Instructions Additional med instructions Please continue to take all meds previously prescribed. In addition you may also take an [id number] iron supplement once per day. Test Results Test Results An x-ray done here in the hospital reveal normal findings. Diet Discharge Diet: Other (advance diet as tolerated, begin with soft foods.) Activity Discharge Activity: No restrictions Call your provider Call your provider for: Fever or Chills, Shortness of breath, Bleeding, Chest pain, Vomitting, Excessive diarrhea Patient Instructions Patient Instructions You came to the hospital with concern over bloody diarrhea. You were given a lot of fluids along with multiple blood transfusions to keep your blood counts at an appropriate level. A colonoscopy was done to stop the bleeding which appears to have been successful. At this point you are medically cleared to go home, however we would like you to be aware that your blood counts here in the hospital did not yet returned to normal levels. For this reason, we would like you to have close follow-up with your primary care doctor who will ensure that your blood counts are rising appropriately. Please be aware that in the event that you experience extreme lightheadedness, shortness of breath, or repeat bloody diarrhea you should return to the emergency department at that time. Follow-up plan Please follow-up with primary care as soon as possible. Please follow-up with gastroenterology within the next 2-3 weeks. Follow-up Provider: Marija Graves Follow-up with PCP in: 1 week Provider: Augustine Prescott MD Follow-up in: 2 weeks Claude Martin MD 06/23/172010: Discharge Instructions Attending's Statement The patient was seen and examined together with Dr. Mendiola on 06/21/2017 and I agree with the history, exam and plan as outlined in the note above. . Edgar Mendiola DO Jun 21, 2017 15:48 Claude Martin MD Jun 23, 2017 20:11
--- NOTE | 2017-06-21 16:24 | PCM.DC.MED ---
Discharge Summary Date of Service Jun 21, 2017 Dates of Hospitalization Date of Hospital Admission Jun 20, 2017 at 04:43 Date of Discharge: Jun 21, 2017 Providers: Admitting Physician: Miguel Paul MD Primary Care Physician: Marija Graves Attending Physician: Claude Martin MD Diagnosis at Time of Discharge Diagnosis at Time of Discharge Acute Lower GI bleeding. Present on admission, active Normocytic anemia secondary to Acute Blood loss. Present on admission, active Type 2 Diabetes, Chronic Hypertension, Chronic Hyperlipidemia, Chronic Consultations GI: Dr. Prescott Procedures XRay, CTs & MRIs X-RAY CHEST ONE VIEW, PORTABLE IMPRESSION: No acute cardiopulmonary disease. Dictated by: Quirino Loza RRA Interpreted: Shasha Webb MD on 06/20/2017 at 9:23 Approved by: Shasha Webb M.D. on 06/20/2017 at 11:09 Brief History Taken from H&P completed by Dr. Palencia "Claude Dougherty is a 72 yo Gentleman with Diabetes, Coronary artery disease , Peripheral artery disease and Tubular adenoma with recent colonoscopy presents to [facility] Emergency department via EMS complaining of bloody diarrhea, onset 4 hours ago. Patient recently had a Colonoscopy on 06/07/17. He did well after the procedure. Yesterday patient developed diarrhea without any blood but then he noted some increased bloody stools with clots late last night. Associated symptoms include lightheadedness, malaise and diaphoresis. He reported taking 3 x 325 mg of Aspirin apparently because he developed malaise prior to the bleeding. He denies nausea, vomiting and abdominal pain. Case discussed with Dr Millard. patient noted to have orthostatic hypotension with his BP in 70s. He was still dizzy when trying to get up. Fluids initiated." Hospital Course Claude Dougherty is a 72 yo Gentleman with Diabetes, Coronary artery disease, Peripheral artery disease and Tubular adenoma with recent colonoscopy presents to [facility] Emergency department via EMS complaining of bloody diarrhea Acute Lower GI bleeding. Present on admission, active Likely bleeding from site of recent polypectomy procedure. Other etiology includes Diverticular bleeding, Vascular ectasias, Colorectal Cancer, Hemorrhoids, anal fissure. Orthostatic noted which means significant volume loss - Patient may advance diet as tolerated. Starting with soft foods. - Continue holding Aspirin and anticoagulants - Dr Prescott consulted, scope done. Bleeding polypectomy found and bleeding stopped. - Patient was given another 2 units of blood this morning - Patient states that he is able to ambulate without dizziness, or lightheadedness - Patient feels considerably better and is anxious to discharge home. - Blood counts appear stable, close follow-up with PCP as advised Normocytic anemia secondary to Acute Blood loss. Present on admission, active MCV normal with history of Tubular adenoma. Patient likely has a chronic cause for anemia - Patient will follow-up with PCP for H&H recheck. I expect this to improve as the patient does not appear to be bleeding from any external sources. Type 2 Diabetes, Chronic - Patient may restart Metformin and Glipizide upon discharge home - Hemoglobin A1c 6.0 Hypertension, Chronic - continuing Benazepril 20 mg daily and Metoprolol 25 mg bid Hyperlipidemia, Chronic - continue Atorvastatin 40 mg daily . Exam Vital Signs (Last) Date Time Temp Pulse Resp B/P Pulse Ox O2 Delivery O2 Flow Rate FiO2 06/21/17 13:14 36.6 86 18 132/76 97 OxyMask Exam General: No acute distress, well-developed, well-nourished HEENT: Normocephalic, atraumatic. External ears without defect. Pupils equal, round, and reactive to light and accommodation. Anicteric sclerae, pale moist conjunctivae. Cardiovascular: Regular rate with a grade 3/6 systolic murmur, no rubs, or gallops appreciated Pulmonary: Clear to auscultation bilaterally with no crackles, wheezes, or rhonchi. Normal respiratory effort with no use of accessory muscles. Abdomen: Bowel tones present. Soft, left lower quadrant tenderness, nondistended. Extremities: No clubbing, cyanosis, edema Skin: Normal temperature, turgor, and texture; no rash, ulcers, or subcutaneous nodules appreciated. Neurological: Cranial nerves grossly intact. Reflexes, coordination, and sensory function within normal limits. Normal muscle strength, tone, and bulk. Psychiatric: Normal mood and affect. Alert and oriented to person, place, and time Test 06/20/17 02:28 06/20/17 03:28 06/20/17 04:40 06/21/17 09:00 Prothrombin Time 11.5sec (8.1-12.5) Prothromb Time International Ratio 1.07ratio Troponin T 0.010ug/L (0.0-0.011) Hold Callahan Top Tube Received (Received) Hemoglobin A1c 6.0% (4.8-5.6) Urine Color Straw (YELLOW) Urine Appearance Hazy (CLEAR,HAZY) Urine pH 5.0 (5.0-8.0) Urine Specific [place] 1.021 (1.003-1.035) Urine Protein Negativemg/dL (NEG,TRACE) Urine Glucose (UA) Negativemg/dL (NEGATIVE) Urine Ketones 15mg/dL (NEGATIVE) Urine Occult Blood Negative (NEGATIVE) Urine Nitrite Negative (NEGATIVE) Urine Bilirubin Negative (NEGATIVE) Urine Urobilinogen Normalmg/dL (NORMAL) Urine Leukocyte Esterase Negative (NEGATIVE) Urine RBC 0-2/hpf (0-2) Urine WBC 0-5/hpf (0-5) Urine Epithelial Cells Occasional/hpf (NONE-MOD) Urine Crystals None seen (NONE SEEN) Urine Bacteria Few/hpf (NONE-FEW) Urine Hyaline Casts Occasional/lpf (NONE) Urine Granular Casts None seen (NONE SEEN) Urine Waxy Casts None seen (NONE SEEN) Urine Red Blood Cell Casts None seen (NONE SEEN) Urine White Blood Cell Casts None seen (NONE SEEN) Urine Mucus None seen (None Seen) Urine Trichomonas None seen (NONE SEEN) Urine Yeast None (NONE SEEN) Urinalysis Comment None Urine Culture Reflexed Not indicated White Blood Count 18.5th/mm3 (3.8-10.1) Red Blood Count 2.79mil/mm3 (4.40-5.80) Mean Corpuscular Volume 90.7fL (81-100) Mean Corpuscular Hemoglobin 29.7pg (27.0-35.0) Mean Corpuscular Hemoglobin Concent 32.8% (32.0-37.0) Red Cell Distribution Width 16.9% (12.3-15.4) Platelet Count 228bil/L (150-400) Neutrophils (%) (Auto) 74.1% (40-74) Lymphocytes (%) (Auto) 17.1% (14-46) Monocytes (%) (Auto) 6.2% (4-12) Eosinophils (%) (Auto) 1.8% (0-5) Basophils (%) (Auto) 0.3% (0-3) Sodium Level 139mEq/L (134-144) Potassium Level 3.7mEq/L (3.5-5.2) Chloride Level 108mEq/L (97-108) Carbon Dioxide Level 17mmol/L (18-29) Blood Urea Nitrogen 15mg/dL (8-27) Creatinine 0.76mg/dL (0.76-1.27) Estimat Glomerular Filtration Rate 107mL/min (>59) Glucose Level 200mg/dL (60-99) Calcium Level 7.7mg/dL (8.5-10.1) Magnesium Level 1.6mg/dL (1.6-2.6) Total Bilirubin 0.9mg/dL (0.0-1.2) Aspartate Amino Transf (AST/SGOT) 14U/L (0-50) Alanine Aminotransferase (ALT/SGPT) 17U/L (0-44) Alkaline Phosphatase 79U/L (25-160) Total Protein 4.8g/dL (6.4-8.4) Albumin 3.1g/dL (3.4-5.0) Test 06/21/17 13:00 Hemoglobin 9.2g/dL (13.8-17.2) Hematocrit 27.7% (41.0-50.0) Discharge Medications Discharge Medications Aspirin (Aspirin) 81 Mg Tablet 81 MG PO DAILY (Reported) Atorvastatin (Lipitor) 40 Mg Tablet 40 MG PO DAILY (Reported) Glipizide (Glipizide) 10 Mg Tablet 10 MG PO BID (Reported) Insulin Lispro (HumaLOG U100 Insulin Pen) 100 Unit/1 Ml Insuln.pen 1 UNIT SUBQ TID (Reported) Blood Sugar Lispro Correction <151 0 units 151-175 1 unit 176-200 2 units 201-225 3 units 226-250 4 units 251-275 5 units 276-300 6 units 301-325 7 units 326-350 8 units 351-375 9 units 376-400 10 units >400 12 units Check blood sugars before meals and at bedtime. Use correction factor only before meals. Metformin ER (Metformin ER) 1,000 Mg Tablet 1,000 MG PO DAILY (Reported) Metoprolol Tartrate (Metoprolol Tartrate) 25 Mg Tablet 25 MG PO BID (Reported) Mu-Vits-Min Th/Lycopene/Lutein (Centrum Silver Tablet) 1 Each Tablet 1 EACH PO DAILY (Reported) Sertraline HCl (Sertraline) 20 Mg/1 Ml Oral.conc 25 MG PO DAILY (Reported) Tadalafil (Cialis) 20 Mg Tablet 20 MG PO PRN (Reported) As needed Tadalafil (Cialis) 20 Mg Tablet 20 MG PO PRN PRN PRN na (Reported) As directed by physician. Miscellaneous Medications Benazepril (Benazepril) 20 Mg Tablet 20 MG PO (Reported) Fluticasone Propionate (Fluticasone Propionate) 50 Mcg/Actuation Dobson.susp 15.8 ML NS (Reported) Additional med instructions Please continue to take all meds previously prescribed. In addition you may also take an [id number] iron supplement once per day. Followup Plan Disposition: Home Follow-up plan Please follow-up with primary care as soon as possible. Please follow-up with gastroenterology within the next 2-3 weeks. Discharge Diet: Other (advance diet as tolerated, begin with soft foods.) Discharge Activity: No restrictions Patient Instructions You came to the hospital with concern over bloody diarrhea. You were given a lot of fluids along with multiple blood transfusions to keep your blood counts at an appropriate level. A colonoscopy was done to stop the bleeding which appears to have been successful. At this point you are medically cleared to go home, however we would like you to be aware that your blood counts here in the hospital did not yet returned to normal levels. For this reason, we would like you to have close follow-up with your primary care doctor who will ensure that your blood counts are rising appropriately. Please be aware that in the event that you experience extreme lightheadedness, shortness of breath, or repeat bloody diarrhea you should return to the emergency department at that time. Follow-up Provider: Marija Graves Follow-up with PCP in: 1 week Provider: Augustine Prescott MD Follow-up in: 2 weeks Time spent Greater than 30 minutes was spent in preparation of discharge with greater than 50% of that time dedicated to patient counseling and coordination of care. . Attending Statement The patient was seen and examined together with Dr. Mendiola on 06/21/2017 and I agree with the history, exam and plan as outlined in the note above. . copies to: Marija Graves; Augustine Prescott MD, Adam J DO Jun 21, 2017 16:24 Claude Martin MD Jun 23, 2017 20:12
--- NOTE | 2017-06-21 16:55 | NUR ---
Up in room indep all day. No pain or nausea reported. Received 2 units RBCs today, follow-up H&H noted. Eating well, voiding brisk amount clear yellow urine. No stool today. No S&S of bleeding. Vital signs stable, afebrile, SR on tele, no ectopy reported. Discharge instructions discussed with patient and family, discharged to home at 1650.
--- NOTE | 2017-06-21 17:54 | NUR ---
Social Work-discharge: Data:EMR Reviewed. Pt is on day 2 of hospitalization per H&P. Pt is medically stable for discharge. SW followed up with pt and provided him with information regarding DPOA/ advanced directive and paperwork. Pt declines any SW needs. Pt's family to provide transport home today. No discharge needs identified. All updated and agreeable to plan. Assessment:Pt who is independent at baseline. Plan:Pt to discharge home today via POV. No discharge needs identified. All updated and agreeable to plan. SAMEERA Diaz
== END 2017-06-21 16:50 | disposition home or self-care (01) | DRG 378 ==
LOC: EDBD 01:52 → SED 01:52 → PCC 04:43
PROVIDERS: ADMIT Hospitalist; ATTEND Internal Medicine
PROC: 30233N1 Transfusion of Nonautologous Red Blood Cells into Peripheral Vein, Percutaneous Approach (ICD-10-PCS; 2017-06-20)
PROC: 30233N1 Transfusion of Nonautologous Red Blood Cells into Peripheral Vein, Percutaneous Approach (ICD-10-PCS; 2017-06-20)
PROC: 0W3P8ZZ Control Bleeding in Gastrointestinal Tract, Via Natural or Artificial Opening Endoscopic (ICD-10-PCS; principal; 2017-06-20 10:30)
DX: K92.1 Melena (principal); D62 Acute posthemorrhagic anemia; D36.7 Benign neoplasm of other specified sites; E11.9 Type 2 diabetes mellitus without complications; I25.10 Atherosclerotic heart disease of native coronary artery without angina pectoris; Z79.4 Long term (current) use of insulin; Z79.82 Long term (current) use of aspirin; Z98.890 Other specified postprocedural states